=== PATIENT | female | born 1975 | race Caucasian/White ===

== ENCOUNTER 2022-03-29 20:42 | Emergency (ER) | payer BC ==
[2022-03-29] MEDS ORDERED: methylPREDNISolone Sodium Succinate 125 MG/2 ML SDV IM ONE (21:32)
[2022-03-29] MEDS ORDERED: oxyCODONE 5 MG Tab PO ONE (21:32)
[2022-03-29] MEDS ORDERED: Ketorolac 30 MG/ML SDV IM ONE (21:32)
== END 2022-03-29 23:41 | disposition home or self-care (01) ==
LOC: JP.ED 20:42
DX: M51.16 Intervertebral disc disorders with radiculopathy, lumbar region (principal); F17.210 Nicotine dependence, cigarettes, uncomplicated; Z88.5 Allergy status to narcotic agent
CPT/HCPCS: 72100; 96372; 99283; A9270; J1885; J2930